=== PATIENT | female | born 1980 | race Caucasian/White ===

== ENCOUNTER 2017-03-31 16:04 | Emergency (ER) | payer MEDICAID, OTHER ==
[~2017-03-31] VITALS: Ht 154.9 cm; Wt 97.5 kg
[2017-03-31 16:30] VITALS: BP 144/108
[2017-03-31] MEDS ORDERED: HYDROcodone-ACET 10/325MG TAB PO ONE (18:15)
== END 2017-03-31 20:19 | disposition home or self-care (01) ==
LOC: ER 16:06
DX: M79.605 Pain in left leg (principal); I10 Essential (primary) hypertension; Z88.0 Allergy status to penicillin
CPT/HCPCS: 73700

== ENCOUNTER 2018-05-08 08:36 | Emergency (ER) | payer MEDICAID, OTHER ==
[~2018-05-08] VITALS: Ht 172.7 cm; Wt 93.0 kg
[2018-05-08 09:41] VITALS: BP 144/89
== END 2018-05-08 10:50 | disposition home or self-care (01) ==
LOC: ER 08:40
DX: J40 Bronchitis, not specified as acute or chronic (principal); I10 Essential (primary) hypertension; Z98.51 Tubal ligation status
CPT/HCPCS: 71046